=== PATIENT | male | born 1950 | race African-American/Black ===

== ENCOUNTER → 2019-11-20 | Outpatient (CLI) | payer MEDICARE, OTHER ==
--- NOTE | 2019-11-20 12:32 | Diagnostic Imaging Report ---
INDICATION: Knee pain. COMPARISON: None. FINDINGS: Multiple views of the right knee joint demonstrate no acute fracture or dislocation. No focal osseous lesions are seen. Mild osteoarthritic changes are noted. No significant joint effusion is seen. The surrounding soft tissue structures are unremarkable. There are no radiopaque foreign bodies. IMPRESSION: 1. No acute fractures or dislocations of the right knee joint. 2. Mild osteoarthritis. Dictated by: Dictated on workstation # [id number]
== END ==
LOC: RAD 10:45
PROVIDERS: ATTEND Family Medicine
DX: M17.11 Unilateral primary osteoarthritis, right knee (principal)
CPT/HCPCS: 73562

== ENCOUNTER → 2020-08-11 | Outpatient (CLI) | payer MEDICARE, OTHER ==
--- NOTE | 2020-08-11 10:31 | Diagnostic Imaging Report ---
PROCEDURE: CT chest without contrast. TECHNIQUE: Multiple contiguous axial images were obtained through the chest without the use of intravenous contrast. Auto Exposure Controls were utilized during the CT exam to meet ALARA standards for radiation dose reduction. INDICATION: Covid infection June 2020. Difficulty breathing post infection. Cough. CORRELATION: None FINDINGS: Evaluation of the mediastinal structures is limited given lack of contrast. A few small shotty subcentimeter central retroperitoneal lymph nodes. Heart size is mildly enlarged with scattered mildly prominent coronary artery calcifications. Thoracic aortic contour is unremarkable. Multiple small bilateral axillary lymph nodes. Small hiatal hernia at the gastroesophageal junction. There are scattered wispy-like areas of predominantly peripheral groundglass opacities throughout both lung lees. This involves upper and to a slightly lesser degree lower lung distribution, right slightly greater than left. No clau lobar consolidation. No significant pleural effusion. Low-density foci in the liver favoring probable cyst but incompletely characterized. The visualized osseous structures demonstrate no acute findings. IMPRESSION: Scattered bilateral pulmonary groundglass opacities. Findings are nonspecific but could be reflective of residual or recurrent Covid pneumonia. Alternative inflammatory or infectious etiologies are also considerations. Dictated by: Dictated on workstation # [id number]
== END ==
LOC: RAD 09:24
PROVIDERS: ATTEND Family Medicine
DX: R91.8 Other nonspecific abnormal finding of lung field (principal); R05 Cough; R06.00 Dyspnea, unspecified; Z86.16 Personal history of COVID-19
CPT/HCPCS: 71250